=== PATIENT | male | born 1975 | race Two or more races ===

== ENCOUNTER 2023-09-08 10:00 | Emergency (ER) | payer SELFPAY ==
[~2023-09-08] VITALS: Ht 165.1 cm; Wt 85.0 kg
[2023-09-08 10:15] VITALS: O2SAT 98
[2023-09-08] MEDS ORDERED: LIDOCAINE 1% HCL (LOCAL ANESTH.) INJ 20ML MDV ONE (10:41)
[2023-09-08] MEDS ORDERED: LIDOCAINE 1% HCL (LOCAL ANESTH.) INJ 20ML MDV ID ONE (10:45)
[2023-09-08] MEDS ORDERED: NAPR-1334 PO (11:13)
[2023-09-08] MEDS ORDERED: CEPH250C PO (11:13)
[2023-09-08] MEDS ORDERED: NEOMYCIN-BACITRACIN-POLYM UNITDOSE PKG TOP OINT TOP ONE (11:45)
[2023-09-08 12:00] VITALS: BP 20/74; PULSE 81; RESP 18; O2SAT 97
== END 2023-09-08 12:30 | disposition home or self-care (01) ==
LOC: ER 10:00
DX: S68.121A Partial traumatic metacarpophalangeal amputation of left index finger, initial encounter (principal); Z79.899 Other long term (current) drug therapy; W22.8XXA Striking against or struck by other objects, initial encounter; Y93.89 Activity, other specified; Y92.89 Other specified places as the place of occurrence of the external cause; Y99.8 Other external cause status
CPT/HCPCS: 12002; 73130; 99283; J2001